=== PATIENT | female | born 1995 | race Native Hawaiian/Other Pacific Islander ===

== ENCOUNTER 2022-08-29 17:42 | Emergency (ER) | payer OTHER ==
[~2022-08-29] VITALS: Ht 154.9 cm; Wt 98.0 kg
[2022-08-29 18:00] VITALS: TEMP 99.1
[2022-08-29 23:00] VITALS: BP 128/80
== END 2022-08-29 23:00 | disposition home or self-care (01) ==
LOC: ED 17:42
DX: S13.4XXA Sprain of ligaments of cervical spine, initial encounter (principal); V53.5XXA Driver of pick-up truck or van injured in collision with car, pick-up truck or van in traffic accident, initial encounter; Y92.488 Other paved roadways as the place of occurrence of the external cause
CPT/HCPCS: 96372; 99283; J1885